=== PATIENT | male | born 1955 | race Caucasian/White ===

== ENCOUNTER → 2020-05-09 | Outpatient (CLI) | payer OTHER | END | disposition home or self-care (01) | LOC: LABWHC1 16:47 | PROVIDERS: ATTEND Family Medicine | DX: R05 Cough (principal); Z20.828 Contact with and (suspected) exposure to other viral communicable diseases | CPT/HCPCS: U0003; C9803 ==

== ENCOUNTER 2022-05-29 07:26 | Day surgery (SDC) | payer MEDICARE, OTHER ==
[2022-05-25 10:15] VITALS: BMI 42.7
[~2022-05-29 07:26] MED LIST: LACTATED RINGERS 1,000 ML IV SCH; LIDOCAINE 1% (10MG/ML) FOR IV START INTRADERMA PRN
[2022-05-29 07:50] VITALS: TEMP 98
[2022-05-29 08:03] LABS: Glucose,Whole Blood 152 mg/dL (70-110)
[2022-05-29] MEDS ORDERED: PROPOFOL 10 MG/ML 20 ML VIAL IV ONE (08:47)
[2022-05-29] MEDS ORDERED: LIDOCAINE 2% INJ 20 MG/ML (2 ML VIAL) ONE (08:47)
--- NOTE | 2022-05-29 09:14 | P.PCN ---
Date of Procedure: 05/29/22 Procedure(s) Performed: PREOPERATIVE DIAGNOSIS: Rectal bleeding POSTOPERATIVE DIAGNOSIS: Mild diverticulosis, internal hemorrhoids PROCEDURE: Colonoscopy, anoscopy with hemorrhoidal banding ANESTHESIA: MAC SURGEON: Sam Ravi M.D. SPECIMENS: None ENDOSCOPIC PROCEDURE: The patient was placed on the endoscopy table in the left decubitus position. The Olympus colonoscope was inserted into the anus and passed under direct visualization to the base of the cecum. The appendiceal orifice was visualized. From that point the scope was slowly withdrawn inspecting all surfaces carefully. There were no neoplastic inflammatory or polypoid lesions throughout the cecum, ascending, transverse, descending, sigmoid and rectum. There was mild scattered diverticulosis noted. Retroflexion at the anus revealed some internal hemorrhoids it appeared somewhat prominent. The anoscope was then utilized. Prominent hemorrhoids in the left lateral location were noted internally and a single complex was banded using the suction hemorrhoidal banding technique. The patient was taken to the recovery room in stable condition per anesthesia guidelines. RECOMMENDATIONS: Resume diet. Increase fiber. May require additional hemorrhoidal banding of a adjacent hemorrhoid if symptoms persist.
[2022-05-29 09:18] VITALS: RESP 16
[2022-05-29 09:36] VITALS: BP 98/54; PULSE 66
== END 2022-05-29 09:58 | disposition home or self-care (01) ==
LOC: ORWHC2ENDO 07:26
PROVIDERS: ATTEND Surgery
DX: K64.8 Other hemorrhoids (principal); K62.5 Hemorrhage of anus and rectum; K57.30 Diverticulosis of large intestine without perforation or abscess without bleeding; I10 Essential (primary) hypertension; E78.5 Hyperlipidemia, unspecified; E11.9 Type 2 diabetes mellitus without complications; Z88.0 Allergy status to penicillin; Z87.891 Personal history of nicotine dependence; Z88.5 Allergy status to narcotic agent
CPT/HCPCS: 45398; J2704; J2001